=== PATIENT | female | born 1960 | race African-American/Black ===

== ENCOUNTER 2023-12-18 16:49 | Emergency (ER) | payer MEDICARE, MEDICAID ==
[~2023-12-18] VITALS: Ht 162.6 cm; Wt 65.0 kg
[~2023-12-18 16:49] MED LIST: ALBU6.7H15 INH; AZIT500T MT; OMEP20CA14 PO; P20 MT
[2023-12-18 16:51] VITALS: BP 133/88; PULSE 98; RESP 16; TEMP 98.6; O2SAT 97
[2023-12-18] MEDS: PREDNISONE 20MG TABLET PO STA (16:58)
[2023-12-18] MEDS: LORAZEPAM 1MG TABLET PO ONE (17:00)
[2023-12-18] MEDS ORDERED: P50 MT (18:10)
== END 2023-12-18 18:49 | disposition home or self-care (01) ==
LOC: ER 16:49
DX: J44.1 Chronic obstructive pulmonary disease with (acute) exacerbation (principal); F41.1 Generalized anxiety disorder; F19.90 Other psychoactive substance use, unspecified, uncomplicated; Z88.5 Allergy status to narcotic agent
CPT/HCPCS: 99283; 71045; J7512